=== PATIENT | male | born 1950 | race Caucasian/White ===

== ENCOUNTER 2022-08-01 13:55 | Outpatient (CLI) | payer MEDICARE, SELFPAY ==
--- NOTE | ~2022-08-01 | XR_ITS ---
XR chest 2V 08/01/2022 14:14 Indication: Shortness of breath. Cough. Procedure: PA and lateral views of the chest Comparison: 10/24/2012 Findings: Status post median sternotomy for CABG. 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 Right basilar atelectasis. No focal pneumonia, pleural effusion or pneumothora x. No edema. Impression: 1: Chronic elevation of the right diaphragm with right basilar compressive atelectasis. Reviewed, dictated and finalized at location A. UNTING BOOKKEEPER Impression: 1: Chronic elevation of the right diaphragm with right basilar compressive atel ectasis.
== END 2022-08-01 13:56 | disposition home or self-care (01) ==
LOC: ANHIMG 13:58
PROVIDERS: PCP Family Medicine; Visit Provider Family Medicine
DX: R06.89 Other abnormalities of breathing (principal)
CPT/HCPCS: 71046

== ENCOUNTER 2023-07-29 10:36 | Outpatient (CLI) | payer MEDICARE, SELFPAY ==
--- NOTE | 2023-07-29 11:11 | ECG_ITS ---
Measurements Intervals [place] Rate: 43 P: [place]: 0 QRS: -50 QRSD: 171 T: 97 QT: 494 QTc: 421 Interpretive Statements ATRIAL FIBRILLATION WITH SLOW VENTRICULAR RESPONSE MARKED LEFT AXIS DEVIATION [QRS AXIS < -30] LEFT BUNDLE BRANCH BLOCK [120+ ms QRS DURATION, 80+ ms Q/S IN V1/V2, 85+ ms R IN I/aVL/V5/V6] NO PREVIOUS ECG AVAILABLE FOR COMPARISON Electronically Signed On 07-29-2023 15:19:49 PHOTOGRAPH EDITOR by Kristen Brown M.D.
== END 2023-07-29 10:37 | disposition home or self-care (01) ==
LOC: ANHCARD 10:39
PROVIDERS: PCP Family Medicine; Visit Provider Physician Assistant
DX: R00.1 Bradycardia, unspecified (principal); I44.7 Left bundle-branch block, unspecified
CPT/HCPCS: 93005

== ENCOUNTER 2024-07-28 10:31 | Outpatient (CLI) | payer MEDICARE, SELFPAY ==
--- OUTSIDE RECORDS SUMMARY | 2024-07-28 11:24 | XMS_ITS | Continuity of Care Document ---
Author Organization [facility] Address [address] [facility] [address] [place] [address] Phone Care Team Providers Care Roofer Assistant Name Role Phone Phillips OD, Miquel Unavailable Unavailable Procedures Procedure Date Eye Exam & Treatment Refraction Eye Exam, New Patient Advance Directives Directive Yes / No Effective Date File Name No Information Encounters Encounter Description Practice Location Reason(s) For Visit Diagnoses Date Provider Providers Copied on Encounter [facility], [address] [place] [address] [address], [place], [place], [id number], tel:[phone] [facility] No Information Aug- 0-200 9 Phillips OD Miquel. [address] , [address], [place], [place], [facility], . tel:[phone] [facility], [address] [place] [address] [address], [place], [place], [id number], tel:[phone] [facility] No Information 0 1-200 7 Phillips OD Miquel. [address] , [address], [place], [address], [place]. tel:[phone] Family History Family Member Type Diagnosis Age At Onset No Information Payers Payer name Insurance type Covered alliance party ID Authoriza tikatherine(s) [employer] Vision Plan CI [id number] Social History Type Description Quantity Date Captured Comments Sex Male Smoking Status No Information Chief Complaint And Reason For Visit No Information Reason For Referral Reason For Referral No Information History Of Present Illness Encounter Date Complaint History Of Prese nt Illness No Information Functional Status Date Functional Assessmen t No Information Instructions Date Instruction Additional Infor mation No Information Assessments Type Assessment Date No Information Patient Care Teams Name Effective Dates (start - stop) Status Members No Information
--- OUTSIDE RECORDS SUMMARY | 2024-07-28 11:25 | XMS_ITS | Clinical Summary ---
Author Organization [facility] Address [address] [place] [id number] Care Team Providers Care Production Sound Mixer Name Role Phone Blossom Serrato MD Primary Care Provider [phone] Allergies No known active allergies Medications lisinopriL (PRINIVIL,ZESTR [place]) 20 mg tablet TAKE 1 TABLET BY MOUTH EVERY DAY 90 tablet 3 0 Active Additional Information Patient taking differently: 20 mg oral Daily with lunch, Indications: hypertension, Informant: Self, Reported on 10/21/2023 hydroCHLOROthia zide (HYDRODIURIL) 25 mg tabletIndicatio ns:hypertension Take 1 tablet (25 mg total) by mouth daily with lunch Active atorvastatin (LIPITOR) 80 mg tablet TAKE 1 TABLET BY MOUTH EVERY DAY 90 tablet 3 Active Additional Information Patient taking differently: 80 mg oral Daily with lunch, Indications: hyperlipidemia, Informant: Self, Reported on 12/05/2023 apixaban (ELIQUIS) 5 mg tablet Take 1 tablet (5 mg total) by mouth 2 (two) times a day 60 tablet 11 4 Active Additional Information Patient taking differently:5 mg oral 2 times daily,Indications: atrial fibrillation, hx stroke, Informant: Self, Reported on 12/05/2023 ascorbic acid (VITAMIN C ORAL)Indication s:supplement Take 1 tablet by mouth every morning Forgets often Active cholecalciferol , vitamin D3, (VITAMIN D3 ORAL)Indication s:supplement Take 1 capsule by mouth every morning Active magnesium hydroxide (JASMINE CHEWS) 311 mg tablet,chewable chewable tablet Take 1 tablet (311 mg total) by mouth every 6 (six) hours as needed (heartburn) Active acetaminophen (TYLENOL) 500 mg tablet Take 1 tablet (500 mg total) by mouth every 6 (six) hours as needed for pain Active Active Problems Problem Noted Date Diagnosed Date Complete heart block (CMS/HCC) 12/24/2023 Assessment & Plan (12/25/2023 9:09 AM CDT): S/p PPM yesterday - Bedrest with exceptions (up with assistance for bathroom privileges) for 6 hours - No heparin products (heparin or enoxaparin) due to risk of pocket hematoma - Anticoagulation plan: can restart AC with apixaban in 48 hours - ABX prophylaxis: s/p perioperative 1g IV Ancef, continue IV Ancef for 72 hours - CXR and device interrogation WNL - L arm precautions - sleep with sling, no reaching overhead, no bearing weight >10lbs Atrial fibrillation (CMS/HCC) 12/24/2023 Assessment & Plan (12/25/2023 9:09 AM CDT): - resume Eliquis tomorrow Bradycardia 09/12/2023 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 Inguinal hernia 06/12/2013 Essential hypertension 12/10/2012 Assessment & Plan (12/24/2023 3:24 PM CDT): - HCTZ, lisinopril Hyperlipidemia 12/10/2012 Coronary arteriosclerosis in [place] artery 11/26 Encounters Date Type Department Care Team Description 05/03/2024 Orders Only [facility] Cardiology [facility] [address] [place] [address] Drake Schwartz MD 2024 Orders Only [facility] Health Information Management [address] [place] [address] Scanning, Provider 04/29/2024 Orders Only [facility] Health Information Management [address] [place] [address] Scanning, Provider from Last 3 Months Surgical History Surgery Date Site/Laterality Comments CORONARY ARTERY BYPASS GRAFT 06/16/2012 - 06/15/2013 INGUINAL HERNIA REPAIR 06/16/2013 - 06/15/2014 Family History Medical History Relation Name Comments Other Brother 3 Alive and well; Stroke Brother 4 Stroke; Stroke Father Stroke; /Family history of cerebrovascular accident - (Added by TW Conv) Stroke Mother Stroke; /Family history of cerebrovascular accident - (Added by TW Conv) Stroke Sister 2 Stroke; Stroke Sister 3 Family history of cerebrovascular accident - (Added by TW Conv) Anesthesia problems Neg Hx Relation Name Status Comments Brother 1 Alive Brother 2 Alive Brother 3 Brother 4 Father (Age 74) Mother (Age 81) Sister 1 (Age 65) Sister 2 Sister 3 Social History Tobacco Use Types Packs/Day Years Used Date Smoking Tobacco: Never Smokeless Tobacco: Never Tobacco Cessation:Counseling Given: Not Answered AUDIT-C Answer Date Recorded Q1: How often do you have a drink containing alc ohol? Monthly or less 12/24/2023 Q2: How many drinks containi ng alcohol do you have on a typical day when you are drinking? 1 or 2 12/24/2023 Q3: How often do you have si x or more drinks on one occasion? Never 12/24/2023 Personal Safety Answer Date Recorded Have you ever been in or are you currently in a harmful physical or emotional relationship or is someone making you feel afraid or unsafe? 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 Gender Identity Not on file Sexual Orientation Not on file Obstetrics History Last Filed Vital Signs Vital Sign Reading Time Taken Comments Blood Pressure 142/97 03/24/2024 1:37 PM CDT Pulse 85 03/24/2024 1:37 PM CDT Temperature 36.5 C (97.7 F) 12/25/2023 8:33 AM CDT Respiratory Rate 16 12/25/2023 8:33 AM CDT Oxygen Saturation 97% 03/24/2024 1:37 PM CDT Inhaled Oxygen Concentration - - Weight 94.8 kg (209 lb) 03/24/2024 1:37 PM CDT Height 172.7 cm (5' 8 ) 03/24/2024 1:37 PM CDT Body Mass Index 31.78 03/24/2024 1:37 PM CDT Plan of Treatment Health Maintenance Due Date Last Done Comments Colon Cancer Screening-Colonoscopy 1950 Depression Screening 1950 Hepatitis B Screening 1968 Zoster Vaccine (1 of 2) 2000 Pneumococcal vaccine 65+ (1 of 1 - PCV) 2015 Well Visit 65+ 2015 DTaP/Tdap/Td Vaccine (2 - Td or Tdap) 02/08/2023 Influenza Vaccine (#1) 2024 Fall Risk Assessment 12/24/2024 12/25/2023 Hepatitis C Screening Completed 10/28/2012 Medical Devices Implanted Type Area Employment Counselor Device Identifier Shelf Expiration Date Model / Serial / Lot [employer] Capsurefix Novus 6.2fr 2mm 52cm Bipolar Screw In Implantable Latex Free 5076-52 - [id number] - [id number] Implanted:Qty: 1 on 12/24/2023 by Drake Schwartz MD at [facility] Lead [employer] 10/02/2025 5076-5 2 / [id number] / [id number] Med[employer] Selectsecure 4.1fr 69cm Bipolar Screw In Is-1 Atrium Ventricle [id number] - [id number] - [id number] Implanted:Qty: 1 on 12/24/2023 by Drake Schwartz MD at [facility] Lead [employer] 10/04/2025 [id number] / [id number] / [id number] [employer] Clarissa S Mri Surescan 50.8x46.6mm 2 Chamber 7.4mm Pacemaker 22.5gm [id number] - [id number] - [id number] Implanted:Qty: 1 on 12/24/2023 by Drake Schwartz MD at [facility] Pacemaker [employer] 04/12/2025 W3DR01 / [id number] / [id number] Procedures Procedure Name Priority Date/Time Associated Diagnosis Comments DEVICE CHECK - REMOTE Routine 05/03/2024 10:51 AM FEDERAL JUDGE SCAN - OTHER ORDERS 2024 SCAN - OTHER ORDERS 04/29/2024 SERUM HEPATITIS C AB Routine 10/28/2012 8:24 AM CDT from Last 3 Months or Most Recently Relevant to Health Maintenance Results * DEVICE CHECK - REMOTE (05/03/2024 10:51 AM FEDERAL JUDGE) Anatomical Region Laterality Modality Other 05/03/2024 10:5 1 AM FEDERAL JUDGE Narrative 06/16/2024 9:36 PM FEDERAL JUDGE Interpretation Summary: Anticoagulation (AC) Patient prescribed Apixaban (Eliquis) Patient on anticoagulant therapy Procedure Note Drake Schwartz MD - 06/16/2024 Interpretation Summary: Anticoagulation (AC) Patient prescribed Apixaban (Eliquis) Patient on anticoagulant therapy Drake Schwartz MD [facility] PROCEDURE S Final Result * SCAN - OTHER ORDERS (2024) Provider Scanning Final Result * SCAN - OTHER ORDERS (04/29/2024) Provider Scanning Final Result * Serum Hepatitis C ab (10/28/2012 8:24 AM CDT) HCV ab Negative Negative HISTORICAL RESULTS Serum 10/28/2012 8:24 AM CDT Historical Provider LAB BLOOD ORDERABLES Paradise l Result HISTORICAL RESULTS from Last 3 Months or Most Recently Relevant to Health Maintenance Insurance MEDICARE [facility] MEDICARE [facility] MEDICARE [facility] MEDICARE [facility] Address: [address] [place] [address] [facility] Advance Directives For more information, please contact: [phone] * Full Code (Latest Code Status on File) Date Activated Date Inactivated Comments 12/24/2023 11:31 AM 12/25/2023 2:32 PM Care Teams Production Sound Mixer Relationship Specialty Start Date End Date Blossom Serrato MD PCP - General Family Medicine 07/31/23
--- OUTSIDE RECORDS SUMMARY | 2024-07-28 11:25 | XMS_ITS | Referral Summary ---
Author Organization [facility] Address [address] [place] [address] Care Team Providers Care Rpg Programmer Analyst Name Role Phone Blossom Serrato MD Primary Care Provider [phone] Encounters Date Type Department Care Team Description 05/03/2024 Orders Only [facility] Cardiology [address] [facility] [address] [place] [id number] Drake Schwartz MD 2024 Orders Only [facility] Health Information Management [address] [place] [address] Scanning, Provider 04/29/2024 Orders Only [facility] Health Information Management [address] [place] [address] Scanning, Provider from Last 3 Months Allergies No known active allergies Medications lisinopriL [...] HCTZ, lisinopril Hyperlipidemia 12/10/2012 Coronary arteriosclerosis in [place] artery 11/26 Social History Tobacco Use Types Packs/Day Years [...] on file Legal Sex Male 11:19 AM BRANCH OFFICER Gender Identity Not on file Sexual Orientation Not on file Last Filed Vital Signs Vital Sign Reading [...] 03/24/2024 1:37 PM CDT Plan of Treatment Not on file Medical Devices Implanted Type Area Financial Writer Device Identifier Shelf Expiration Date Model / Serial / Lot Med[employer]onic Inc Capsurefix Novus 6.2fr 2mm 52cm Bipolar Screw In Implantable Latex Free 5076-52 - [id number] - [id number] Implanted:Qty: 1 on 12/24/2023 by Drake Schwartz MD at [facility] Lead [employer] 10/02/2025 5076-5 2 / [id number] / [id number] [employer] Selectsecure 4.1fr 69cm Bipolar Screw In Is-1 Atrium Ventricle [id number] - [id number] - [id number] Implanted:Qty: 1 on 12/24/2023 by Drake Schwartz MD at [facility] Lead [employer] 10/04/2025 [id number] / [id number] / [id number] [employer] Susan S Mri Surescan 50.8x46.6mm 2 Chamber 7.4mm Pacemaker 22.5gm [id number] - [id number] - [id number] Implanted:Qty: 1 on 12/24/2023 by Drake Schwartz MD at [facility] Pacemaker [employer] 04/12/2025 W3DR01 / [id number] / [id number] Procedures Procedure Name Priority Date/Time Associated Diagnosis Comments DEVICE CHECK - REMOTE Routine 05/03/2024 10:51 AM BRANCH OFFICER SCAN - OTHER ORDERS 2024 SCAN - OTHER ORDERS 04/29/2024 SERUM HEPATITIS C AB Routine 10/28/2012 8:24 AM CDT from Last 3 Months or Most Recently Relevant to Health Maintenance Results * DEVICE CHECK - REMOTE (05/03/2024 10:51 AM BRANCH OFFICER) Anatomical Region Laterality Modality Other 05/03/2024 10:5 1 AM BRANCH OFFICER Narrative 06/16/2024 9:36 PM BRANCH OFFICER Interpretation Summary: Anticoagulation (AC) Patient prescribed Apixaban (Eliquis) Patient on anticoagulant therapy Procedure Note Drake Schwartz MD - 06/16/2024 Interpretation Summary: Anticoagulation (AC) Patient prescribed Apixaban (Eliquis) Patient on anticoagulant therapy us Drake Schwartz MD [facility] PROCEDURE S Final Result * SCAN - OTHER ORDERS (2024) us Provider Scanning Final Result * SCAN - OTHER ORDERS (04/29/2024) us Provider Scanning Final Result * Serum Hepatitis C ab (10/28/2012 8:24 AM CDT) HCV ab Negative Negative HISTORICAL RESULTS Serum 10/28/2012 8:24 AM CDT us Historical Provider LAB BLOOD ORDERABLES Paradise velazquez Result HISTORICAL RESULTS from Last 3 Months or Most Recently Relevant to Health Maintenance Insurance MEDICARE [facility] MEDICARE [facility] MEDICARE [facility] MEDICARE [facility] [place] Advance Directives For more information, please contact: [phone] * Full Code (Latest Code Status on File) Date Activated Date Inactivated Comments 12/24/2023 11:31 AM 12/25/2023 2:32 PM Care Teams Rpg Programmer Analyst Relationship Specialty Start Date End Date Blossom Serrato MD PCP - General Family Medicine 07/31/23
[2024-07-28 11:31] LABS: Influenza A QL RT-PCR Negative (Negative); Influenza B QL RT-PCR Negative (Negative); RSV RNA, RT-PCR Negative (Negative); SARS-CoV-2 RNA PCR Negative (Negative)
== END 2024-07-28 10:32 | disposition home or self-care (01) ==
LOC: ANHLAB 10:32
PROVIDERS: PCP Family Medicine; Visit Provider Family Medicine
DX: J06.9 Acute upper respiratory infection, unspecified (principal); Z20.822 Contact with and (suspected) exposure to COVID-19; I44.7 Left bundle-branch block, unspecified
CPT/HCPCS: 87637

== ENCOUNTER 2024-11-12 10:37 | Emergency (ER) | payer MEDICARE, SELFPAY ==
[2024-11-12] VITALS (21 sets, daily range): BP systolic 136–157; BP diastolic 85–105; PULSE 60–79; RESP 14–22; TEMP 36.8; O2SAT 96–100
--- NOTE | ~2024-11-12 | XR_ITS ---
XR chest 2V 11/12/2024 13:23 Indication: Dizziness and lightheadedness Procedure: PA and lateral views of the chest Comparison: 08/01/2022 Findings: Status post median sternotomy for CABG. Pacemaker leads are stable. Mild cardiomegaly.. No focal air space disease, pulmonary edema, pleural effusion or suspected pneumothorax. Impression: 1: Mild cardiomegaly. Reviewed, dictated and finalized at location A. Impression: 1: Mild cardiomegaly.
--- NOTE | ~2024-11-12 | CT_ITS ---
History: Vertigo PROCEDURE: CT head without contrast. COMPARISON: None TECHNIQUE: Axial imaging of the head performed from the skull base to the vertex without IV contrast. Sagittal a nd coronal reformations obtained. DLP: 605 mGy-cm FINDINGS: The ventricles are enlarged. The dilatation of the ventricles is proportional to the degree of sulcal prominence, not uncommon in the senescent brain. Decreased attenuation is identified within the periventricular white matter, likely secondary to micr ovascular ischemic disease, in a patient of this age. There is no mass, mass effect or midline shift. There is no abnormal extra-axial fluid collection or intracranial hemorrhage. Visualized paranasal sinuses are clear. The mastoid air cells are well aerated. No acute displaced fractures within the overlying cranium. Impression: No acute intracranial hemorrhage or suspicious mass effect. Reviewed, dictated and finalized at location A. Impression: No acute intracranial hemorrhage or suspicious mass effect.
--- OUTSIDE RECORDS SUMMARY | 2024-11-12 10:49 | XMS_ITS | Clinical Summary ---
Author Organization [facility] Address [address] [place] [address] Care Team Providers Care Bulldozer Press Operator Name Role Phone Blossom Serrato MD Primary Care Provider [phone] Allergies No known active allergies Medications lisinopriL [...] Indications: hyperlipidemia, Informant: Self, Reported on 12/05/2023 ascorbic acid [...] (six) hours as needed for pain Active apixaban (Eliquis) 5 mg tablet TAKE 1 TABLET BY MOUTH TWICE A DAY 60 tablet 3 5 Active Active Problems Problem Noted Date Diagnosed Date Complete heart block 12/24/2023 Assessment & Plan (12/25/2023 9:09 AM [...] overhead, no bearing weight >10lbs Atrial fibrillation 12/24/2023 Assessment & Plan (12/25/2023 9:09 AM CDT): - resume Eliquis tomorrow Bradycardia 09/12/2023 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 Inguinal hernia 06/12/2013 Essential hypertension 12/10/2012 Assessment & Plan (12/24/2023 3:24 PM CDT): - HCTZ, lisinopril Hyperlipidemia 12/10/2012 Coronary arteriosclerosis in [place] artery 11/26 Encounters Date Type Department Care Team Description 09/01/2024 8:22 AM CDT - 09/01/2024 11:59 PM CDT Hospital Encounter [facility] Radiology 1 [place] [address] Tremor, unspecified; Other symptoms and signs involving the musculoskeletal system Discharge Disposition: Discharge to home or self care 09/01/2024 8:22 AM CDT - 09/01/2024 11:59 PM CDT Hospital Encounter [facility] Radiology 1 [place] [address] Encounter for imaging to screen for metal prior to magnetic resonance imaging (MRI) Discharge Disposition: Discharge to home or self care 09/01/2024 Documentation Cardiology Jessica Gray NURSE MANAGER 08/25/2024 Documentation [facility] Electrophysiology Lab 1 [place] [address] Drake Schwartz MD from Last 3 Months Surgical History Surgery [...] on file 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 Gender Identity Not on file Sexual Orientation Not on file Obstetrics History Last Filed Vital Signs Vital Sign Reading Time Taken Comments Blood Pressure 116/82 09/01/2024 12:05 PM CDT Pulse 61 09/01/2024 12:05 PM CDT Temperature 36.5 C (97.7 F) 12/25/2023 8:33 AM CDT Respiratory Rate 16 12/25/2023 8:33 AM CDT Oxygen Saturation 97% 09/01/2024 12:05 PM CDT Inhaled Oxygen Concentration - - Weight 94.8 kg (209 lb) 03/24/2024 1:37 PM CDT Height 172.7 cm (5' 8) 03/24/2024 1:37 PM CDT Body Mass Index 31.78 03/24/2024 1:37 PM CDT Plan of Treatment Health Maintenance Due Date Last Done Comments Colon Cancer Screening-Colonoscopy 1950 Depression Screening 1950 Hepatitis B Screening 1968 Pneumococcal vaccine 65+ (1 of 1 - PCV) 2000 Zoster Vaccine (1 of 2) 2000 Well Visit 65+ 2015 DTaP/Tdap/Td Vaccine (2 - Td or Tdap) 02/08/2023 Fall Risk Assessment 12/24/2024 12/25/2023 Influenza Vaccine (Season Ended) 2025 Hepatitis C Screening Completed 10/28/2012 Medical Devices Implanted Type Area Rod Puller And Coiler Device Identifier Shelf Expiration Date Model / Serial / Lot Medtronic Inc Capsurefix Novus 6.2fr 2mm 52cm Bipolar Screw In Implantable Latex Free 5076-52 - [id number] - [id number] Implanted:Qty: 1 on 12/24/2023 by Drake Schwartz MD at [facility] Lead [employer]onic Inc 10/02/2025 5076-5 2 / [id number] / [id number] Medtronic Inc Selectsecure 4.1fr 69cm Bipolar Screw In Is-1 Atrium Ventricle [id number] - [id number] - [id number] Implanted:Qty: 1 on 12/24/2023 by Drake Schwartz MD at [facility] Lead [employer] Inc 10/04/2025 [id number] / [id number] / [id number] Medtronic Inc [place] S Mri Surescan 50.8x46.6mm 2 Chamber 7.4mm Pacemaker 22.5gm W3dr01 - [id number] - [id number] Implanted:Qty: 1 on 12/24/2023 by Drake Schwartz MD at [facility] Pacemaker Med[employer]onic Inc 04/12/2025 W3DR01 / [id number] / [id number] Procedures Procedure Name Priority Date/Time Associated Diagnosis Comments MRI BRAIN W WO CONTRAST Schedule Routine, Read Routine (OP Routine) 09/01/2024 12:06 PM CDT Tremor, unspecified Other symptoms and signs involving the musculoskeletal system XR CHEST PA LATERAL 2 VIEWS Schedule Routine, Read Routine (OP Routine) 09/01/2024 9:23 AM CDT Encounter for imaging to screen for metal prior to magnetic resonance imaging (MRI) SERUM HEPATITIS C AB Routine 10/28/2012 8:24 AM CDT from Last 3 Months or Most Recently Relevant to Health Maintenance Results * MRI Brain W WO Contrast (09/01/2024 12:06 PM CDT) Anatomical Region Laterality Modality Head and Neck N/A Magnetic Resonan ce 09/01/2024 1:32 PM CDT Impressions 09/01/2024 7:20 PM CDT 1. No acute intracranial findings. 2. Generalized parenchymal volume loss with chronic microvascular ischemic changes as well as old right cerebellar infarct. Dictated by: Hernesto Felipe M.D. The radiology attending physician has personally reviewed this study, and had reviewed and/or edited this written report and agrees with it. Electronically signed by: Wilberto Paul M.D. Narrative 09/01/2024 7:20 PM CDT EXAMINATION: Magnetic resonance imaging (MRI) of the brain and brainstem without and with contrast HISTORY: 74 years-old Male with TREMOR, OTHER SYMPTOMS AND SIGNS INVOLVING THE MUSCULOSKELETAL SYSTEM. TECHNIQUE: Multiplanar multi-weighted MRI of the brain and brainstem was performed without and with intravenous contrast using the general brain protocol. Contrast information: 18 mL Gadoterate Meglumine IV COMPARISON: None Available. FINDINGS: Generalized parenchymal volume loss with mild enlargement of the ventricular system. Prominent extra-axial spaces. Scattered periventricular as well as deep and subcortical white matter T2/FLAIR hyperintensities, most consistent with chronic microvascular ischemic changes, many of which have peripheral location. 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 Prominent perivascular spaces. The scalp and calvarium are normal. The superior sagittal sinus demonstrates normal venous flow. The corpus callosum is normal in shape and signal intensity. The posterior fossa is unremarkable. The pituitary and sella are normal. The brainstem and craniocervical junction are unremarkable. Diffusion weighted images reveal no hyperintensities to suggest acute cerebral infarction. Punctate focus of susceptibility artifact in the left quiles radiata, consistent with prior microhemorrhage. The ventricles are normal in size and position without evidence of hydrocephalus. Mucosal thickening in the bilateral maxillary and ethmoid sinuses. The visualized portions of the mastoids are unremarkable. The orbits appear normal. Normal flow voids are demonstrated in the carotid arteries and basilar artery. There is no abnormal contrast enhancement. Procedure Note Wilberto Paul MD - 09/01/2024 EXAMINATION: Magnetic resonance imaging (MRI) of the brain and brainstem without and with contrast HISTORY: 74 years-old Male with TREMOR, OTHER SYMPTOMS AND SIGNS INVOLVING THE MUSCULOSKELETAL SYSTEM. TECHNIQUE: Multiplanar multi-weighted MRI of the brain and brainstem was performed without and with intravenous contrast using the general brain protocol. Contrast information: 18 mL Gadoterate Meglumine IV COMPARISON: None Available. FINDINGS: Generalized parenchymal volume loss with mild enlargement of the ventricular system. Prominent extra-axial spaces. Scattered periventricular as well as deep and subcortical white matter T2/FLAIR hyperintensities, most consistent with chronic microvascular ischemic changes, many of which have peripheral location. 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 Prominent perivascular spaces. The scalp and calvarium are normal. The superior sagittal sinus demonstrates normal venous flow. The corpus callosum is normal in shape and signal intensity. The posterior fossa is unremarkable. The pituitary and sella are normal. The brainstem and craniocervical junction are unremarkable. Diffusion weighted images reveal no hyperintensities to suggest acute cerebral infarction. Punctate focus of susceptibility artifact in the left quiles radiata, consistent with prior microhemorrhage. The ventricles are normal in size and position without evidence of hydrocephalus. Mucosal thickening in the bilateral maxillary and ethmoid sinuses. The visualized portions of the mastoids are unremarkable. The orbits appear normal. Normal flow voids are demonstrated in the carotid arteries and basilar artery. There is no abnormal contrast enhancement. IMPRESSION: 1. No acute intracranial findings. 2. Generalized parenchymal volume loss with chronic microvascular ischemic changes as well as old right cerebellar infarct. Dictated by: Hernesto Felipe M.D. The radiology attending physician has personally reviewed this study, and had reviewed and/or edited this written report and agrees with it. Electronically signed by: Wilberto Paul M.D. Blossom Serrato MD IMG MRI PROCEDURES Final Result * XR Chest PA Lateral 2 Views (09/01/2024 9:23 AM CDT) Anatomical Region Laterality Modality Body, Chest N/A Computed Radiogr aphy 09/01/2024 10:3 6 AM CDT Impressions 09/01/2024 10:58 AM CDT Postsurgical changes of median sternotomy with stable fractured sternal wires. Left subclavian approach dual lead pacemaker with leads in the right atrium and right ventricle. There are no fractures or abandoned wires or leads. The cardiomediastinal silhouette is stable. Mild bibasilar atelectasis. There is no consolidation, pleural effusion, or pneumothorax. Dictated by: Kumar Antoine M.D. The radiology attending physician has personally reviewed this study, and had reviewed and/or edited this written report and agrees with it. Electronically signed by: Cat Mcdaniel M.D. Narrative 09/01/2024 10:58 AM CDT EXAMINATION: 2 view chest radiograph Procedure Note Cat Mcdaniel MD - 09/01/2024 EXAMINATION: 2 view chest radiograph IMPRESSION: Postsurgical changes of median sternotomy with stable fractured sternal wires. Left subclavian approach dual lead pacemaker with leads in the right atrium and right ventricle. There are no fractures or abandoned wires or leads. The cardiomediastinal silhouette is stable. Mild bibasilar atelectasis. There is no consolidation, pleural effusion, or pneumothorax. Dictated by: Kumar Antoine M.D. The radiology attending physician has personally reviewed this study, and had reviewed and/or edited this written report and agrees with it. Electronically signed by: Cat Mcdaniel M.D. Adry Abarca MD PhD IMG XR PROCEDURES Fi nal Result * Serum Hepatitis C ab (10/28/2012 8:24 AM CDT) HCV ab Negative Negative HISTORICAL RESULTS Serum 10/28/2012 8:24 AM CDT us Historical Provider LAB BLOOD ORDERABLES Paradise velazquez Result HISTORICAL RESULTS from Last 3 Months or Most Recently Relevant to Health Maintenance Insurance MEDICARE [place]UE [place] MEDICARE SUPPLEMENT MEDICARE [place] [facility] MEDICARE [facility] MEDICARE SUPPLEMENT MEDICARE [place] MEDIC[place] SUPPLEMENT Advance Directives For more information, please contact: [phone] * Full Code (Latest Code Status on File) Date Activated Date Inactivated Comments 12/24/2023 11:31 AM 12/25/2023 2:32 PM Care Teams Bulldozer Press Operator Relationship Specialty Start Date End Date Blossom Serrato MD PCP - General Family Medicine 07/31/23
--- OUTSIDE RECORDS SUMMARY | 2024-11-12 10:49 | XMS_ITS | Referral Summary ---
Author Organization [facility] Address [address] [place] [address] Care Team Providers Care Medical Records Secretary Name Role Phone Blossom Serrato MD Primary Care Provider [phone] Encounters Date Type Department Care Team Description 09/01/2024 Documentation Cardiology Jessica Gray NP 09/01/2024 8:22 AM CDT - 09/01/2024 11:59 PM CDT Hospital Encounter [facility] Radiology 1 [place] [address] Encounter for imaging to screen for metal prior to magnetic resonance imaging (MRI) Discharge Disposition: Discharge to home or self care 09/01/2024 8:22 AM CDT - 09/01/2024 11:59 PM CDT Hospital Encounter [facility] Radiology 1 [place] [address] Tremor, unspecified; Other symptoms and signs involving the musculoskeletal system Discharge Disposition: Discharge to home or self care 08/25/2024 Documentation [facility] Electrophysiology Lab 1 [place] [address] Drake Schwartz MD from Last 3 Months Allergies No known [...] HCTZ, lisinopril Hyperlipidemia 12/10/2012 Coronary arteriosclerosis in [place] artery 11/26 Social History Tobacco Use Types [...] on file 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 Gender Identity Not on file Sexual Orientation [...] on file Medical Devices Implanted Type Area Cheese Cook Device Identifier Shelf Expiration Date Model / Serial / Lot Medtronic Inc Capsurefix Novus 6.2fr 2mm 52cm Bipolar Screw In Implantable Latex Free 5076-52 - [id number] - [id number] Implanted:Qty: 1 on 12/24/2023 by Drake Schwartz MD at [facility] Lead [employer] Inc 10/02/2025 5076-5 2 / [id number] / [id number] Medtronic Inc Selectsecure 4.1fr 69cm Bipolar Screw In Is-1 Atrium Ventricle 269618 - [id number] - [id number] Implanted:Qty: 1 on 12/24/2023 by Drake Schwarzt MD at [facility] Lead [employer] Inc 10/04/2025 [id number] / [id number] / [id number] Medtronic Inc [place] Mri Surescan 50.8x46.6mm 2 Chamber 7.4mm Pacemaker 22.5gm W3dr01 - [id number] - [id number] Implanted:Qty: 1 on 12/24/2023 by Drake Schwartz MD at [facility] Pacemaker [employer] Inc 04/12/2025 W3DR01 / [id number] / [id number] Procedures Procedure Name Priority Date/Time Associated Diagnosis [...] it. Electronically signed by: Wilberto Paul M.D. us Blossom Serrato MD IMG MRI PROCEDURES Final [...] it. Electronically signed by: Cat Mcdaniel M.D. us Adry Abarca MD PhD IMG XR PROCEDURES Fi nal Result * Serum Hepatitis C ab (10/28/2012 8:24 AM CDT) HCV ab Negative Negative HISTORICAL RESULTS Serum 10/28/2012 8:24 AM CDT us Historical Provider LAB BLOOD ORDERABLES Paradise velazquez Result HISTORICAL RESULTS from Last 3 Months or Most Recently Relevant to Health Maintenance Insurance MEDICARE [facility] Address: [address] [address] [place] [address] [facility] MEDICARE SUPPLEMENT MEDICARE [facility] MEDICARE [place] MEDICARE SUPPLEMENT MEDICARE [facility] BLUE [place]OSS MEDICARE SUPPLEMENT Advance Directives For more information, please contact: [phone] * Full Code (Latest Code Status on File) Date Activated Date Inactivated Comments 12/24/2023 11:31 AM 12/25/2023 2:32 PM Care Teams Medical Records Secretary Relationship Specialty Start Date End Date Blossom Serrato MD PCP - General Family Medicine 07/31/23
--- NOTE | 2024-11-12 12:10 | ECG_ITS ---
Test Date: 2024-11-12 12:17:03 Measurements Intervals [place] Rate: 60 P: 0 TN: 0 QRS: 9 QRSD: 153 T: 4 QT: 469 QTc: 469 Interpretive Statements ELECTRONIC VENTRICULAR PACEMAKER ABNORMAL RHYTHM ECG No previous ECG available for comparison Electronically Signed On 11-12-2024 15:10:13 CDT by Kristen Brown M.D.
[2024-11-12 12:23] LABS: Basophils Percent Auto 0.5 % (0.2-1.2); Eosinophils Absolute Auto 0.1 K/mm3 (0-0.3); Eosinophils Percent Auto 1.7 % (0-4.4); Hematocrit 42.4 % (42.0-52.0); Hemoglobin 14.4 g/dL (14.0-18.0); Immature Granulocyte Absolute 0.02 K/mm3 (0.00-0.031); Immature Granulocyte Percent A 0.3 % (0-0.5); Lymphocytes Absolute Auto 1.21 K/mm3 (0.9-3.2); Lymphocytes Percent Auto 20.2 % (18.3-44.2); Mean Corpuscular Hemoglobin 33.3 pg (26-34); Mean Corpuscular Volume 97.9 fl (80-100); Mean Platelet Volume 10.2 fl (7.4-10.4); Monocytes Absolute Auto 0.6 K/mm3 (0.1-0.6); Monocytes Percent Auto 9.7 % (2.6-8.5); Neutrophils Absolute Auto 4.1 K/mm3 (1.3-6.7); Neutrophils Percent Auto 67.6 % (45.5-73.1); Platelet Count Result 181 k/mm3 (150-375); Red Blood Count 4.33 M/mm3 (4.6-6.20); Red Cell Distribution Width 12.1 % (11.5-14.5)
[2024-11-12 12:32] LABS: Alanine Aminotransferase 42 U/L (6-50); Albumin Level 4.5 g/dL (3.5-5.1); Alkaline Phosphatase 54 U/L (38-126); Anion Gap 7 mmol/L (4-12); Aspartate Amino Transferase 34 U/L (17-59); Blood Urea Nitrogen 19 mg/dL (9-20); Calcium 9.3 mg/dL (8.4-10.2); Carbon Dioxide 28 mmol/L (22-30); Chloride 99 mmol/L (98-107); Estimated CRCL calculation 106 ml/min; Estimated Glomerular Filt Rate > 60; Glucose 115 mg/dL (65-110); Potassium 3.8 mmol/L (3.4-5.0); Sodium 134 mmol/L (137-145)
--- OUTSIDE RECORDS SUMMARY | 2024-11-12 12:54 | XMS_ITS | Clinical Summary ---
Author Organization [facility] Address [address] [place] [phone] Care Team Providers Care Bus Monitor Name Role Phone Blossom Serrato MD Primary Care Provider [phone] Allergies No known active allergies Medications lisinopriL [...] HCTZ, lisinopril Hyperlipidemia 12/10/2012 Coronary arteriosclerosis in [place] artery 11/26 Encounters Date Type Department Care Team Description 09/01/2024 8:22 AM CDT - 09/01/2024 11:59 PM CDT Hospital Encounter [facility] Radiology 1 [place] [address] Tremor, unspecified; Other symptoms and signs involving the musculoskeletal system Discharge Disposition: Discharge to home or self care 09/01/2024 8:22 AM CDT - 09/01/2024 11:59 PM CDT Hospital Encounter [facility] Radiology 1 [place] [address] Encounter for imaging to screen for metal prior to magnetic resonance imaging (MRI) Discharge Disposition: Discharge to home or self care 09/01/2024 Documentation Cardiology Jessica Gray AUTO PARTS CLERK 08/25/2024 Documentation [facility] Electrophysiology Lab 1 [place] [address] Drake Schwartz MD from Last 3 Months [...] on file 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 Gender Identity Not on file Sexual Orientation [...] Completed 10/28/2012 Medical Devices Implanted Type Area Language Teacher Device Identifier Shelf Expiration Date Model / Serial / Lot Medtronic Inc Capsurefix Novus 6.2fr 2mm 52cm Bipolar Screw In Implantable Latex Free 5076-52 - [id number] - [id number] Implanted:Qty: 1 on 12/24/2023 by Drake Schwartz MD at [facility] Lead [employer] Inc 10/02/2025 5076-5 2 / [id number] / [id number] Medtronic Inc Selectsecure 4.1fr 69cm Bipolar Screw In Is-1 Atrium Ventricle 574678 - [id number] - [id number] Implanted:Qty: 1 on 12/24/2023 by Drake Schwartz MD at [facility] Lead [employer] Inc 10/04/2025 [id number] / [id number] / [id number] Med[employer]onic Inc [place] S Mri Surescan 50.8x46.6mm 2 Chamber 7.4mm Pacemaker 22.5gm W3dr01 - [id number] - [id number] Implanted:Qty: 1 on 12/24/2023 by Drake Schwartz MD at [facility] Pacemaker Med[employer]onic Inc 04/12/2025 W3DR01 / [id number] / [id number] Procedures Procedure Name Priority Date/Time Associated Diagnosis [...] Insurance MEDICARE BLUE [place]OSS MEDICARE SUPPLEMENT MEDICARE [employer] [facility] MEDICARE [facility] MEDICARE SUPPLEMENT MEDICARE [place]UE [place] MEDICARE SUPPLEMENT Advance Directives For more information, please contact: [phone] * Full Code (Latest Code Status on File) Date Activated Date Inactivated Comments 12/24/2023 11:31 AM 12/25/2023 2:32 PM Care Teams Bus Monitor Relationship Specialty Start Date End Date Blossom Serrato MD PCP - General Family Medicine 07/31/23
--- OUTSIDE RECORDS SUMMARY | 2024-11-12 12:54 | XMS_ITS | Referral Summary ---
Author Organization [facility] Address [address] [place] [phone] Care Team Providers Care Service Technician Copier Name Role Phone Blossom Serrato MD Primary Care Provider [phone] Encounters Date Type Department Care Team Description 09/01/2024 Documentation Cardiology Jessica Gray NP 09/01/2024 8:22 AM CDT - 09/01/2024 11:59 PM CDT Hospital Encounter [facility] Radiology 1 [place] [address] Encounter for imaging to screen for metal prior to magnetic resonance imaging (MRI) Discharge Disposition: Discharge to home or self care 09/01/2024 8:22 AM CDT - 09/01/2024 11:59 PM CDT Hospital Encounter [facility] Radiology 1 [place] [address] Tremor, unspecified; Other symptoms and signs involving the musculoskeletal system Discharge Disposition: Discharge to home or self care 08/25/2024 Documentation [facility] Electrophysiology Lab 1 [place] [address] Drake Schwartz MD from Last 3 Months [...] HCTZ, lisinopril Hyperlipidemia 12/10/2012 Coronary arteriosclerosis in [place] artery 11/26 Social History Tobacco Use Types [...] on file 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 Gender Identity Not on file Sexual Orientation [...] on file Medical Devices Implanted Type Area Folder Gluer Operator Device Identifier Shelf Expiration Date Model / Serial / Lot Medtronic Inc Capsurefix Novus 6.2fr 2mm 52cm Bipolar Screw In Implantable Latex Free 5076-52 - [id number] - [id number] Implanted:Qty: 1 on 12/24/2023 by Drake Schwartz MD at [facility] Lead [employer] Inc 10/02/2025 5076-5 2 / [id number] / [id number] Med[employer]onic Inc Selectsecure 4.1fr 69cm Bipolar Screw In Is-1 Atrium Ventricle 146200 - [id number] - [id number] Implanted:Qty: 1 on 12/24/2023 by Drake Schwartz MD at [facility] Lead [employer] 10/04/2025 [id number] / [id number] / [id number] Med[employer]onic Inc [place] Mri Surescan 50.8x46.6mm 2 Chamber 7.4mm Pacemaker 22.5gm W3dr01 - [id number] - [id number] Implanted:Qty: 1 on 12/24/2023 by Drake Schwartz MD at [facility] Pacemaker [employer] 04/12/2025 W3DR01 / [id number] / [id number] Procedures Procedure Name Priority Date/Time Associated Diagnosis [...] Recently Relevant to Health Maintenance Insurance MEDICARE [facility] MEDICARE SUPPLEMENT MEDICARE [facility] MEDICARE [place] MEDICARE SUPPLEMENT MEDICARE [facility] BLUE [place]OSS MEDICARE SUPPLEMENT Advance Directives For more information, please contact: [phone] * Full Code (Latest Code Status on File) Date Activated Date Inactivated Comments 12/24/2023 11:31 AM 12/25/2023 2:32 PM Care Teams Service Technician Copier Relationship Specialty Start Date End Date Blossom Serrato MD PCP - General Family Medicine 07/31/23
--- NOTE | 2024-11-12 12:56 | ED.GENADULT ---
HPI - General Adult General Chief complaint: Dizziness Stated complaint: fainting spell this am, hx stroke Time Seen by Provider: 11/12/24 12:42 History of Present Illness HPI narrative: This is a 74-year-old male presenting with a chief complaint of dizziness. Patient states that while he was eating breakfast he had the sudden onset of 2-3 seconds of dizziness that then resolved. He has no other symptoms. He had a similar episode 4 days ago that also lasted for 2-3 seconds before resolving. Patient is very nervous because he recently had an MRI that showed he had old strokes that he was unaware of. He is concerned that he may be having another stroke. He did not have any palpitations chest pain difficulty breathing loss of consciousness slurred speech visual changes or any other symptoms during this episode. Patient notes that he has had increased sinus pressure over the last several days. Related Data Home Medications ?Medication ?Instructions ?Recorded ?Confirmed ?Last Taken ?Type acetaminophen 650 mg 650 mg PO Q12H 01/15/24 11/01/24 Unknown History tablet,extended release (Tylenol Arthritis Pain) vitamins A,C,I-vadv-zjtjga 2,148 2 tablet PO BID 01/15/24 11/01/24 Unknown History mcg-113 mg-45 mg-17.4 mg tablet (PreserVision AREDS) Allergies Allergy/AdvReac Type Severity Reaction Status Date / Time No Known Allergies Allergy Verified 11/01/24 11:37 [facility] Past Medical History Medical History Stroke Left leg numbness Pacemaker Erectile dysfunction Anxiety FH: CVA (cerebrovascular accident) Acute non-recurrent sinusitis Dyslipidemia CAD in [place] artery Hyperglycemia Bronchitis Environmental allergies Pain in both hands Surgical History Surgical History S/P placement of cardiac pacemaker History of appendectomy (~04/2002) History of coronary artery stent placement Family History Family History Father Hypertension Cerebrovascular accident Mother Family history of cardiovascular disease Cerebrovascular accident Sibling Cerebrovascular accident Social History Social History Smoking status: Never smoker Second hand tobacco smoke exposure: No Alcohol intake: current Substance use: never Substance use type: does not use Do You Feel Safe in your Home?: Yes Lack of Transportation: No Lack of Food: Never True Current Housing: I Have Housing Concerned About Future Housing: No Difficulty Paying Gas/Electric Bills: No Difficulty Paying for Meds: No Currently Unemployed: No Education: High School Diploma/GED Difficulty w/ Childcare or Family Care: No Living arrangements: with family Occupation/Education: retired 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 Head: atraumatic. TMs with serous effusion EYES: EOMI, NOSE: Atraumatic NECK: Trachea midline RESPIRATORY: No increased rate of breathing clear to auscultation CARDIOVASCULAR: RRR, no peripheral edema ABDOMINAL: Non-distended soft nontender MUSCULOSKELETAl: No obvious deformities NEURO: Alert. Cranial nerves 2-12 grossly intact. Sensation light touch, motor function cerebellar function intact for 4 extremities. Gait exam was normal. SKIN:: Warm, dry. Normal color PSYCHIATRIC: Normal affect Course Vital Signs Vital signs: Vital Signs Temperature 98.3 F 11/12/24 10:49 Pulse Rate 70 11/12/24 10:49 Respiratory Rate 16 11/12/24 10:49 Blood Pressure 139/85 11/12/24 10:49 Pulse Oximetry 98 11/12/24 10:49 Oxygen Delivery Room Air 11/12/24 10:49 Temperature 98.3 F 11/12/24 10:49 Pulse Rate 64 11/12/24 15:15 Respiratory Rate 18 11/12/24 15:15 Blood Pressure 139/94 H 11/12/24 15:09 Pulse Oximetry 100 11/12/24 15:15 Oxygen Delivery Room Air 11/12/24 10:49 Medical Decision Making MDM Narrative Medical decision making narrative: -Course: 74-year-old male presenting with 2-3 second episode dizziness that has since resolved. On physical exam he has a normal neurologic exam is normal. He does have some serous effusion behind his ears and notes increased sinus pressure. Broad workup including CT brain EKG troponin and laboratory studies was obtained and was unremarkable. Unclear etiology of the patient's brief episode of dizziness. On re-evaluation patient is resting comfortably and has not had any recurrence of the event while in the ED. He was able to ambulate around the emergency department with a steady gait. Discussed admission versus discharge and patient is comfortable following up with his pcp. He has requested something to help with his sinus congestion and will be given a prescription for Flonase. Given return precautions. -DDX includes but is not limited to: Dehydration, peripheral vertigo, central vertigo, CVA, dysfunction Vital Signs Vital Signs: Vital Signs Temperature 98.3 F 11/12/24 10:49 Pulse Rate 70 11/12/24 10:49 Respiratory Rate 16 11/12/24 10:49 Blood Pressure 139/85 11/12/24 10:49 Pulse Oximetry 98 11/12/24 10:49 Oxygen Delivery Room Air 11/12/24 10:49 Temperature 98.3 F 11/12/24 10:49 Pulse Rate 64 11/12/24 15:15 Respiratory Rate 18 11/12/24 15:15 Blood Pressure 139/94 H 11/12/24 15:09 Pulse Oximetry 100 11/12/24 15:15 Oxygen Delivery Room Air 11/12/24 10:49 Lab Data 11/12/24 12:18 11/12/24 12:18 Labs: Lab Results 11/12/24 11/12/24 11/12/24 Range/Units 12:17 12:18 15:53 WBC 6.0 (4.5-10.0) K/mm3 RBC 4.33 L (4.6-6.20) M/mm3 Hgb 14.4 (14.0-18.0) g/dL Hct 42.4 (42.0-52.0) % MCV 97.9 (80-100) fl MCH 33.3 (26-34) pg MCHC 34.0 (32-36) g/dl RDW 12.1 (11.5-14.5) % Plt Count 181 (150-375) k/mm3 MPV 10.2 (7.4-10.4) fl Immature Gran % (Auto) 0.3 (0-0.5) % Neut % (Auto) 67.6 (45.5-73.1) % Lymph % (Auto) 20.2 (18.3-44.2) % [place] % (Auto) 9.7 H (2.6-8.5) % Eos % (Auto) 1.7 (0-4.4) % Baso % (Auto) 0.5 (0.2-1.2) % Lymph # (Auto) 1.21 (0.9-3.2) K/mm3 [place] # (Auto) 0.6 (0.1-0.6) K/mm3 Eos # (Auto) 0.1 (0-0.3) K/mm3 Baso # (Auto) 0.0 (0.0-0.1) K/mm3 Abs Immat Gran (auto) 0.02 (0.00-0.031) K/mm3 Absolute Neuts (auto) 4.1 (1.3-6.7) K/mm3 Absolute Nucleated RBC 0.000 (0.0-0.012) K/mm3 Nucleated RBC % 0.0 (0.0-0.2) % Sodium 134 L (137-145) mmol/L Potassium 3.8 (3.4-5.0) mmol/L Chloride 99 (98-107) mmol/L Carbon Dioxide 28 (22-30) mmol/L Anion Gap 7 (4-12) mmol/L BUN 19 (9-20) mg/dL Creatinine 0.59 L (0.7-1.3) mg/dL Estim Creat Clear Calc 106 ml/min Estimated GFR > 60 (59 - ) Glucose 115 H (65-110) mg/dL Calcium 9.3 (8.4-10.2) mg/dL Total Bilirubin 1.0 (0.2-1.3) mg/dL AST 34 (17-59) U/L ALT 42 (6-50) U/L Alkaline Phosphatase 54 (38-126) U/L Troponin I < 0.012 < 0.012 (0.000-0.034) ng/mL NT-Pro-B Natriuret Pep 651 H (19.9-100) pg/mL Total Protein 7.0 (6.3-8.2) g/dL Albumin 4.5 (3.5-5.1) g/dL Discharge Plan Discharge Clinical Impression: Dizziness, Congestion of nasal sinus Patient Disposition: Home Condition: Stable Instructions: Antibiotic Form, Dizziness (ED) Additional Instructions: Please use the Flonase as instructed. Please follow-up primary physician further return to the ED if you develop any new or worsening symptoms. Patient Language: [place] Prescriptions: New fluticasone propionate [24 Hour Allergy Relief] 50 mcg/actuation spray,suspension 1 spray intranasal DAILY Qty: 16 0RF Rx Instructions: administer into each nostril No Action acetaminophen [Tylenol Arthritis Pain] 650 mg tablet extended release 650 mg PO Q12H PreserVision AREDS 2,148 mcg-113 mg-45 mg-17.4mg tablet 2 tablet PO BID Rx Instructions: administer with AM and PM meals Eliquis 5 mg tablet 5 mg PO BID Qty: 90 0RF oxybutynin chloride 5 mg tablet extended release 24hr 5 mg PO DAILY Qty: 30 1RF hydrochlorothiazide 25 mg tablet 25 mg PO DAILY Qty: 90 3RF atorvastatin 80 mg tablet 80 mg PO DAILY Qty: 90 3RF lisinopril 20 mg tablet 20 mg PO DAILY Qty: 90 3RF Follow-up/Referrals: Blossom Serrato MD [Primary Care Provider] -
[2024-11-12 14:01] LABS: NT Pro B Type Natriuretic Pept 651 pg/mL (19.9-100); Troponin I < 0.012 ng/mL (0.000-0.034)
--- NOTE | 2024-11-12 15:49 | ECG_ITS ---
Test Date: 2024-11-12 16:06:21 Measurements Intervals [place] Rate: 61 P: 0 TN: 0 QRS: 13 QRSD: 153 T: 4 QT: 473 QTc: 477 Interpretive Statements ELECTRONIC VENTRICULAR PACEMAKER ABNORMAL RHYTHM ECG Compared to ECG 11/12/2024 12:17:03 No significant changes Electronically Signed On 11-13-2024 07:36:14 CDT by Juan C Rivera M.D.
[2024-11-12 16:19] LABS: Troponin I < 0.012 ng/mL (0.000-0.034)
== END 2024-11-12 17:19 | disposition home or self-care (01) ==
PROVIDERS: Emergency Medicine; Emergency Provider Emergency Medicine; PCP Family Medicine
DX: R42 Dizziness and giddiness (principal); R09.81 Nasal congestion; I25.10 Atherosclerotic heart disease of native coronary artery without angina pectoris; E78.49 Other hyperlipidemia
CPT/HCPCS: 36415; 70450; 71046; 80053; 83880; 84484; 85025; 93005; 99284

== ENCOUNTER 2025-05-05 08:48 | Outpatient (CLI) | payer MEDICARE, SELFPAY ==
--- NOTE | ~2025-05-05 | XR_ITS ---
EXAMINATION: XR hip RT min 2V, 05/05/2025 9:00 LEAF STRIPPER HISTORY: CHRONIC RT HIP PAIN COMPARISON: No comparisons available. Findings: No acute fracture or malalignment. Moderate to severe degenerative changes Soft tissues unremarkable. Impression: No acute fracture or malalignment. Reviewed, dictated and finalized at location P. STRIPPER Impression: No acute fracture or malalignment.
== END 2025-05-05 08:49 | disposition home or self-care (01) ==
DX: M25.551 Pain in right hip (principal)
CPT/HCPCS: 73502